=== PATIENT | female | born 1995 | race Two or more races ===

== ENCOUNTER 2017-01-10 09:29 | Emergency (ER) | payer SELFPAY ==
[2017-01-10] MEDS ORDERED: ONDANSETRON 4 MG TAB.RAPDIS SL ONE (09:40)
--- NOTE | 2017-01-10 09:41 | ER Document Report ---
ED Medical Screen (RME) - General Chief Complaint: Abdominal Pain Stated Complaint: ABDOMINAL PAIN Time Seen by Provider: 01/10/17 09:40 Mode of Arrival: Ambulatory Information source: Patient TRAVEL OUTSIDE OF THE [place] IN LAST 30 DAYS: No - HPI Patient complains to provider of: Abdominal pain with nausea and vomiting Notes: 01/10/17 09:40 Patient is a 21-year-old female presenting to the emergency room complaining of sharp stabbing abdominal pain with nausea and vomiting that started around 2 in the morning, she also reports chills and has a temperature of 99.6 in triage area, no sick contacts, denies being - Related Data Allergies/Adverse Reactions: No Known Allergies Allergy (Verified 01/10/17 09:32) Past Medical History Renal/ Medical History: Denies: Hx Peritoneal Dialysis - Immunizations Hx Diphtheria, Pertussis, Tetanus Vaccination: Yes Physical Exam - Vital signs Vitals: Temp Pulse Resp BP Pulse Ox 99.6 F 85 17 128/78 H 99 01/10/17 09:33 01/10/17 09:33 01/10/17 09:33 01/10/17 09:33 01/10/17 09:33 Course - Vital Signs Vital signs: Temp Pulse Resp BP Pulse Ox 99.6 F 85 17 128/78 H 99 01/10/17 09:33 01/10/17 09:33 01/10/17 09:33 01/10/17 09:33 01/10/17 09:33
[2017-01-10 10:27] LABS: ABSOLUTE EOSINOPHILS # (AUTO) 0.1 10^3/uL (0.0-0.6); ABSOLUTE LYMPHOCYTES (AUTO) 1.5 10^3/uL (0.5-4.7); ABSOLUTE MONOCYTES (AUTO) 0.3 10^3/uL (0.1-1.4); ABSOLUTE NEUT (AUTO) 8.9 10^3/uL (1.7-8.2); BASOPHILS % (AUTO) 0.4 % (0-2); EOSINOPHILS % (AUTO) 0.5 % (0-6); HEMATOCRIT 40.6 % (36.0-47.0); HEMOGLOBIN 14.3 g/dL (12.0-15.5); HGB HCT DIFFERENCE 2.3; LYMPHOCYTES % (AUTO) 13.8 % (13-45); MEAN CORPUSCULAR HEMOGLOBIN 31.9 pg (27.0-33.4); MEAN CORPUSCULAR HGB CONC 35.3 g/dL (32.0-36.0); MEAN CORPUSCULAR VOLUME 91 fl (80-97); MONOCYTES % (AUTO) 2.7 % (3-13); RED BLOOD COUNT 4.49 10^6/uL (3.72-5.28); RED CELL DISTRIBUTION WIDTH 12.5 % (11.5-14.0); SEGMENTED NEUTROPHILS % (AUTO) 82.6 % (42-78); WHITE BLOOD COUNT 10.8 10^3/uL (4.0-10.5)
[2017-01-10 10:37] LABS: APPEARANCE,URINE SLIGHTLY-CLOUDY; BILIRUBIN,URINE NEGATIVE (NEGATIVE); GLUCOSE, URINE >=500 mg/dL (NEGATIVE); KETONES,URINE NEGATIVE (NEGATIVE); LEUKOCYTE ESTERASE,URINE NEGATIVE (NEGATIVE); NITRITE,URINE NEGATIVE (NEGATIVE); PROTEIN,URINE NEGATIVE (NEGATIVE); URINE SPECIFIC GRAVITY 1.031; UROBILINOGEN,URINE NEGATIVE mg/dL (<2.0)
[2017-01-10 10:51] LABS: ALANINE AMINOTRANSFERASE 62 U/L (9-52); ALKALINE PHOSPHATASE 83 U/L (38-126); ANION GAP 15 (5-19); ASPARTATE AMINO TRANSFERASE 29 U/L (14-36); BILIRUBIN,DIRECT 0.3 mg/dL (0.0-0.4); BILIRUBIN,TOTAL 0.5 mg/dL (0.2-1.3); BLOOD UREA NITROGEN 12 mg/dL (7-20); CALCIUM 10.3 mg/dL (8.4-10.2); CARBON DIOXIDE 24 mmol/L (22-30); CHLORIDE 104 mmol/L (98-107); CREATININE RESULT 0.56 mg/dL (0.52-1.25); GLUCOSE 133 mg/dL (75-110); LIPASE 77.2 U/L (23-300); POTASSIUM 4.5 mmol/L (3.6-5.0); TOTAL PROTEIN 8.5 g/dL (6.3-8.2)
--- NOTE | 2017-01-10 11:30 | ER Document Report ---
ED GI/ <JOHN VALENTIN - Last Filed: 01/10/17 12:35> - General Mode of Arrival: Ambulatory Information source: Patient TRAVEL OUTSIDE OF THE [place] IN LAST 30 DAYS: No <MARTÍN MOSLEY - Last Filed: 01/10/17 12:48> - General Chief Complaint: Abdominal Pain Stated Complaint: ABDOMINAL PAIN Time Seen by Provider: 01/10/17 09:40 Notes: Patient is a 21 year old female that presents to the emergency department today with complaints of abdominal pain which began at 0200. Patient complains of epigastric and left lower quadrant abdominal pain. Patient states she has also had diarrhea and vomiting which began at 0200 as well. Patient states her last episode of vomiting/diarrhea was at 0800 this morning. Patient denies any vaginal discharge. (MARTÍN MOSLEY) - Related Data Allergies/Adverse Reactions: No Known Allergies Allergy (Verified 01/10/17 09:32) Past Medical History - General Information source: Patient - Social History Smoking Status: Never Smoker Cigarette use (# per day): No Chew tobacco use (# tins/day): No Frequency of alcohol use: Rare Drug Abuse: None Lives with: Family Family History: Reviewed & Not Pertinent - Medical History Medical History: Negative Surgical Hx: Negative - Immunizations Hx Diphtheria, Pertussis, Tetanus Vaccination: Yes <MARTÍN MOSLEY - Last Filed: 01/10/17 12:48> Review of Systems - Review of Systems Constitutional: Chills EENT: No symptoms reported Cardiovascular: No symptoms reported Respiratory: No symptoms reported Gastrointestinal: See HPI, Diarrhea, Vomiting Genitourinary: No symptoms reported Female Genitourinary: denies: Vaginal discharge Musculoskeletal: No symptoms reported Skin: No symptoms reported Hematologic/Lymphatic: No symptoms reported Neurological/Psychological: No symptoms reported -: Yes All other systems reviewed and negative <MARTÍN MOSLEY - Last Filed: 01/10/17 12:48> Physical Exam <JOHN VALENTIN - Last Filed: 01/10/17 12:35> <MARTÍN MOSLEY - Last Filed: 01/10/17 12:48> - Vital signs Vitals: Temp Pulse Resp BP Pulse Ox 99.6 F 85 17 128/78 H 99 01/10/17 09:33 01/10/17 09:33 01/10/17 09:33 01/10/17 09:33 01/10/17 09:33 - Notes Notes: Physical Exam: General: Alert, appears well. HEENT: Normocephalic. Atraumatic. PERRL. Extraocular movements intact. Oropharynx clear. Neck: Supple. Non-tender. Respiratory: No respiratory distress. Clear and equal breath sounds bilaterally. Cardiovascular: Regular rate and rhythm. Abdominal: LLQ tenderness with palpation. No distension. Normal Bowel Sounds. Back: Non-tender. No deformity or step off. Extremities: Moves all four extremities. Upper extremities: Normal inspection. Normal ROM. Lower extremities: Normal inspection. No edema. Normal ROM. Neurological: Normal cognition. AAOx4. Normal speech. Psychological: Normal affect. Normal Mood. Skin: Warm. Dry. Normal color. (MARTÍN MOSLEY) Course - Laboratory Result Diagrams: 01/10/17 09:58 01/10/17 09:58 <JOHN VALENTIN - Last Filed: 01/10/17 12:35> - Laboratory Result Diagrams: 01/10/17 09:58 01/10/17 09:58 <MARTÍN MOSLEY - Last Filed: 01/10/17 12:48> - Re-evaluation Re-evalutation: 01/10/17 12:35 The patient reports she does feel much better and is tolerating p.o. fluids after the Zofran given on the triage. Her lab work is unremarkable other than a somewhat concentrated urine. She will be discharged with a prescription for Zofran as that did seem to work quite well for her. (JOHN VALENTIN) - Vital Signs Vital signs: Temp Pulse Resp BP Pulse Ox 99.6 F 85 17 128/78 H 99 01/10/17 09:33 01/10/17 09:33 01/10/17 09:33 01/10/17 09:33 01/10/17 09:33 - Laboratory Laboratory results interpreted by va: 01/10/17 01/10/17 01/10/17 09:58 09:58 09:58 WBC 10.8 H Seg Neutrophils % 82.6 H Monocytes % 2.7 L Absolute Neutrophils 8.9 H Glucose 133 H Calcium 10.3 H ALT 62 H Total Protein 8.5 H Urine Glucose (UA) >=500 H Urine Blood MODERATE H Discharge <JOHN VALENTIN - Last Filed: 01/10/17 12:35> <MARTÍN MOSLEY - Last Filed: 01/10/17 12:48> - Discharge Clinical Impression: Nausea vomiting and diarrhea, Abdominal cramps Condition: Stable Disposition: HOME, SELF-CARE Additional Instructions: Gastroenteritis: You most likely have gastroenteritis. This is an irritation of the stomach and intestinal tract. It's usually caused by a virus, but can also be caused by bacteria, toxins that cause food poisoning, or excessive alcohol intake. Symptoms may include fever, painful abdominal cramps, nausea, vomiting , and diarrhea. Start with small amounts (two to six ounces) of clear liquids (soft drinks , herb teas, broth, etc). Try to take fluids frequently even if you are vomiting, to prevent dehydration. When liquids are being consumed successfully , advance to small amounts of bland food (mashed potato, toast) for 6 - 12 hours. Gastroenteritis rarely requires medication. It goes away by itself. Use good handwashing so you don't spread germs. Wash underwear in very hot water. If symptoms are severe, talk to the doctor. Call your physician if blood appears in your vomitus or stool, if vomiting lasts longer than 24 hours, if the abdominal pain worsens or becomes localized to one area, or if you develop high fever. Drink cool clear liquids today. Take the Zofran for nausea as needed. Get plenty of rest today. Try Pepto-Bismol if the diarrhea continues to be a problem. Follow-up with local medical doctor if not improving. RETURN TO THE EMERGENCY ROOM IF ANY NEW OR WORSENING SYMPTOMS. Prescriptions: Ondansetron HCl [Zofran 4 mg Tablet] 1 - 2 tab PO Q4H PRN #12 tablet PRN Reason: Scribe Attestation: 01/10/17 12:38 I personally performed the services described in the documentation, reviewed and edited the documentation which was dictated to the scribe in my presence, and it accurately records my words and actions. (JOHN VALENTIN) Scribe Documentation - Scribe Written by Anne:: Anne Keene, 01/10/2017 1248 acting as scribe for :: Stevenson <MARTÍN MOSLEY - Last Filed: 01/10/17 12:48>
[2017-01-10 12:49] VITALS: BP 114/57
== END 2017-01-10 12:49 | disposition home or self-care (01) ==
LOC: ER 09:29
DX: R10.13 Epigastric pain (principal); R10.32 Left lower quadrant pain; R11.2 Nausea with vomiting, unspecified; R19.7 Diarrhea, unspecified; R68.83 Chills (without fever)
CPT/HCPCS: 99284; 36415; 87086; 83690; 84703; 85025; 80053; 81001; S0119

== ENCOUNTER 2017-04-27 14:37 | Observation (INO) | payer SELFPAY ==
[~2017-04-27 14:37] MED LIST: DEXAMETHASONE SOD PHOSPHATE INJ 4 MG/1 ML VIAL ONE; GLYCOPYRROLATE INJ 0.4 MG/2 ML VIAL ONE; LIDOCAINE 2% INJ-PF (20 MG/ML) 2 ML AMPUL ONE; NEOSTIGMINE METHYLSULFATE 10 MG/10 ML VIAL ONE; ONDANSETRON HCL INJ/PF 4 MG/2 ML SDV ONE; ROCURONIUM BROMIDE INJ 50 MG/5 ML VIAL IV ONE; SUCCINYLCHOLINE CHLORIDE INJ 200 MG/10 ML VIAL ONE
[2017-04-27] MEDS ORDERED: KETOROLAC TROMETHAMINE INJ/PF 30 MG/1 ML SDV IV ONE (15:27)
[2017-04-27] MEDS ORDERED: NORMAL SALINE 1000 ML 1,000 ML IV ONE ×2 (15:27→18:54)
[2017-04-27] MEDS ORDERED: ONDANSETRON HCL INJ/PF 4 MG/2 ML SDV IV ONE (15:27)
--- NOTE | 2017-04-27 15:32 | ER Document Report ---
ED Medical Screen (RME) - General Chief Complaint: Abdominal Pain Stated Complaint: ABDOMINAL PAIN Time Seen by Provider: 04/27/17 15:26 Mode of Arrival: Wheelchair Information source: Patient TRAVEL OUTSIDE OF THE [place] IN LAST 30 DAYS: No - HPI Patient complains to provider of: abd pain Onset: This morning - pt. with onset of generalized abd pain with N/V/D starting earlier this am - Related Data Allergies/Adverse Reactions: No Known Allergies Allergy (Verified 04/27/17 14:39) Past Medical History - Social History Chew tobacco use (# tins/day): No Frequency of alcohol use: None Drug Abuse: None Renal/ Medical History: Denies: Hx Peritoneal Dialysis - Immunizations Hx Diphtheria, Pertussis, Tetanus Vaccination: Yes Physical Exam - Vital signs Vitals: Temp Pulse Resp BP Pulse Ox 99.0 F 69 18 118/82 99 04/27/17 14:47 04/27/17 14:47 04/27/17 14:47 04/27/17 14:47 04/27/17 14:47 Course - Vital Signs Vital signs: Temp Pulse Resp BP Pulse Ox 99.0 F 69 18 118/82 99 04/27/17 14:47 04/27/17 14:47 04/27/17 15:10 04/27/17 14:47 04/27/17 14:47
[2017-04-27 16:49] LABS: APPEARANCE,URINE SLIGHTLY-CLOUDY; BILIRUBIN,URINE NEGATIVE (NEGATIVE); COLOR,URINE YELLOW; GLUCOSE, URINE 50 mg/dL (NEGATIVE); KETONES,URINE TRACE mg/dL (NEGATIVE); LEUKOCYTE ESTERASE,URINE NEGATIVE (NEGATIVE); NITRITE,URINE NEGATIVE (NEGATIVE); PROTEIN,URINE NEGATIVE (NEGATIVE); URINE SPECIFIC GRAVITY 1.025; UROBILINOGEN,URINE NEGATIVE mg/dL (<2.0)
[2017-04-27 16:57] LABS: ABSOLUTE BASOPHILS # (AUTO) 0.1 10^3/uL (0.0-0.2); ABSOLUTE LYMPHOCYTES (AUTO) 1.4 10^3/uL (0.5-4.7); ABSOLUTE MONOCYTES (AUTO) 0.4 10^3/uL (0.1-1.4); ABSOLUTE NEUT (AUTO) 12.9 10^3/uL (1.7-8.2); BASOPHILS % (AUTO) 0.4 % (0-2); EOSINOPHILS % (AUTO) 0.3 % (0-6); HEMATOCRIT 39.7 % (36.0-47.0); HEMOGLOBIN 13.8 g/dL (12.0-15.5); LYMPHOCYTES % (AUTO) 9.2 % (13-45); MEAN CORPUSCULAR HEMOGLOBIN 31.2 pg (27.0-33.4); MEAN CORPUSCULAR HGB CONC 34.7 g/dL (32.0-36.0); MEAN CORPUSCULAR VOLUME 90 fl (80-97); PLATELET COUNT 344 10^3/uL (150-450); RED BLOOD COUNT 4.42 10^6/uL (3.72-5.28); SEGMENTED NEUTROPHILS % (AUTO) 87.1 % (42-78); TOTAL CELLS COUNTED % (AUTO) 100 %; WHITE BLOOD COUNT 14.8 10^3/uL (4.0-10.5)
[2017-04-27 17:18] LABS: ALANINE AMINOTRANSFERASE 60 U/L (9-52); ALKALINE PHOSPHATASE 87 U/L (38-126); ANION GAP 13 (5-19); ASPARTATE AMINO TRANSFERASE 30 U/L (14-36); BILIRUBIN,DIRECT 0.1 mg/dL (0.0-0.4); BILIRUBIN,TOTAL 0.6 mg/dL (0.2-1.3); BLOOD UREA NITROGEN 11 mg/dL (7-20); CALCIUM 10.3 mg/dL (8.4-10.2); CARBON DIOXIDE 21 mmol/L (22-30); CHLORIDE 105 mmol/L (98-107); GLUCOSE 100 mg/dL (75-110); LIPASE 42.1 U/L (23-300); POTASSIUM 4.1 mmol/L (3.6-5.0); SODIUM 138.8 mmol/L (137-145); TOTAL PROTEIN 8.3 g/dL (6.3-8.2)
--- NOTE | 2017-04-27 18:08 | RADIOLOGY REPORT (SQ) ---
EXAM DESCRIPTION: CT ABD/PELVIS WITH IV ONLY COMPLETED DATE/TIME: 04/27/2017 5:53 pm REASON FOR STUDY: abd pain COMPARISON: None. TECHNIQUE: CT scan of the abdomen and pelvis performed using helical scanning technique with dynamic intravenous contrast injection. No oral contrast. Images reviewed with lung, soft tissue, and bone windows. Reconstructed coronal and sagittal MPR images reviewed. Delayed images for evaluation of the urinary system also acquired. All images stored on PACS. All CT scanners at this facility use dose modulation, iterative reconstruction, and/or weight based d osing when appropriate to reduce radiation dose to as low as reasonably achievable (ALARA). [facility]: Dose Right [facility]: CareDose [facility]: Dose Right [facility]: Teradose 4D [facility]: [employer] CONTRAST TYPE AND DOSE: contrast/concentration: Isovue 370.00 mg/ml; Total Contrast Delivered: 77.0 ml; Total Saline Delivered: 62.0 ml RENAL FUNCTION: BUN 11 creatinine 0.53. RADIATION DOSE: CT Rad equipment meets quality standard of care and radiation dose reduction techniq ues were employed. CTDIvol: 6.8 - 9.6 mGy. DLP: 924 mGy-cm.. LIMITATIONS: None. FINDINGS: LOWER CHEST: No significant findings. No nodules or infiltrates. LIVER: Normal size. No masses. No dilated ducts. SPLEEN: Normal size. No focal lesions. PANCREAS: No masses. No significant calcifications. No adjacent inflammation or peripancreatic fluid collections. Pancreatic duct not dilated. GALLBLADDER: No identified stones by CT criteria. No inflammatory changes to suggest cholecystitis. ADRENAL GLANDS: No significant masses or asymmetry. RIGHT KIDNEY AND URETER: No solid masses. No significant calcifications. No hydronephrosis or hyd roureter. LEFT KIDNEY AND URETER: No solid masses. No significant calcifications. No hydronephrosis or hydr oureter. AORTA AND VESSELS: No aneurysm. No dissection. Renal arteries, SMA, celiac without stenosis. RETROPERITONEUM: No retroperitoneal adenopathy, hemorrhage or masses. BOWEL AND PERITONEAL CAVITY: No masses or inflammatory changes. No free fluid or peritoneal masses. APPENDIX: Mildly distended, measuring 9 mm. No significant thickening of the wall. Several appendic oliths are present. The appendix is best imaged on axial series 5 images 60 - 71. PELVIS: No mass. No free fluid. Normal bladder. ABDOMINAL WALL: No masses. No hernias. BONES: No significant or acute findings. OTHER: No other significant finding. IMPRESSION: 1. MILDLY DISTENDED APPENDIX WITH MULTIPLE APPENDICOLITHS. NO SIGNIFICANT THICKENING OF THE WALL OR PERIAPPENDICEAL INFLAMMATORY CHANGES. CANNOT EXCLUDE EARLY ACUTE APPENDICITIS, HOWEVER. 2. NO OTHER SIGNIFICANT OR ACUTE FINDING IN THE ABDOMEN OR PELVIS ON CT SCAN WITH IV CONTRAST. TECHNICAL DOCUMENTATION: JOB ID: [id number] Quality ID # [id number]: Final reports with documentation of one or more dose reduction techniques (e.g., Au tomated exposure control, adjustment of the mA and/or kV according to patient size, use of iterative reconstruction technique) 2010 [employer]- All Rights Reserved
[2017-04-27] MEDS ORDERED: PIPERACILLIN/TAZOBACTAM 3.375 GM VIAL IV ONE (18:57)
[2017-04-27] MEDS ORDERED: MORPHINE SULFATE 10 MG/ML INJ IV PRN ×3 (18:57→21:23)
--- NOTE | 2017-04-27 18:58 | ER Document Report ---
ED General - General Chief Complaint: Abdominal Pain Stated Complaint: ABDOMINAL PAIN Time Seen by Provider: 04/27/17 15:26 Mode of Arrival: Wheelchair Notes: Patient is a 21 year old female without past medical history, no prior surgical history who presents with 24 hours of progressively worsening right lower quadrant abdominal pain. Patient states that the pain initially was to her central abdomen and then has migrated towards her right lower quadrant in the past 4-5 hours. She does describe it as a dull, constant throbbing pain. Touching the area worsens the pain, nothing improves the pain. She denies any history of similar symptoms in the past. She has not seen her primary doctor regarding today's concerns. She notes associated nausea and vomiting. No associated fever. Denies any vaginal bleeding, vaginal discharge or dysuria. TRAVEL OUTSIDE OF THE [place] IN LAST 30 DAYS: No - Related Data Allergies/Adverse Reactions: No Known Allergies Allergy (Verified 04/27/17 14:39) Past Medical History - General Information source: Patient - Social History Smoking Status: Never Smoker Chew tobacco use (# tins/day): No Frequency of alcohol use: None Drug Abuse: None Lives with: Family Family History: Reviewed & Not Pertinent Patient has suicidal ideation: No Patient has homicidal ideation: No Renal/ Medical History: Denies: Hx Peritoneal Dialysis - Immunizations Hx Diphtheria, Pertussis, Tetanus Vaccination: Yes Review of Systems - Review of Systems Notes: Constitutional: Negative for fever. HENT: Negative for sore throat. Eyes: Negative for visual changes. Cardiovascular: Negative for chest pain. Respiratory: Negative for shortness of breath. Gastrointestinal: Positive for abdominal pain and vomiting Genitourinary: Negative for dysuria. Musculoskeletal: Negative for back pain. Skin: Negative for rash. Neurological: Negative for headaches, weakness or numbness. 10 point ROS negative except as marked above and in HPI. Physical Exam - Vital signs Vitals: Temp Pulse Resp BP Pulse Ox 99.0 F 69 18 118/82 99 04/27/17 14:47 04/27/17 14:47 04/27/17 14:47 04/27/17 14:47 04/27/17 14:47 Interpretation: Normal Notes: PHYSICAL EXAMINATION: GENERAL: Appears moderately uncomfortable but in no acute distress HEAD: Atraumatic, normocephalic. EYES: Pupils equal round and reactive to light, extraocular movements intact, sclera anicteric, conjunctiva are normal. ENT: nares patent, oropharynx clear without exudates. Moist mucous membranes. NECK: Normal range of motion, supple without lymphadenopathy LUNGS: Breath sounds clear to auscultation bilaterally and equal. No wheezes rales or rhonchi. HEART: Regular rate and rhythm without murmurs ABDOMEN: Soft, focal tenderness to the right lower quadrant with associated involuntary guarding and rebound. No otherwise localized tenderness. EXTREMITIES: Normal range of motion, no pitting or edema. No cyanosis. NEUROLOGICAL: No focal neurological deficits. Moves all extremities spontaneously and on command. PSYCH: Normal mood, normal affect. SKIN: Warm, Dry, normal turgor, no rashes or lesions noted. Course - Re-evaluation Re-evalutation: 04/28/171929 Presentation is most consistent with an acute appendicitis based on exam and history. CT does confirm findings consistent with an acute appendicitis. Labs also demonstrate leukocytosis. I have discussed this case with Dr. Hernandez the surgeon cotton agent who has accepted the patient for hospitalization and operative management. Patient has been given IV Zosyn, IV fluids and made n.p.o. - Vital Signs Vital signs: Temp Pulse Resp BP Pulse Ox 98.3 F 97 20 109/55 L 98 04/28/17 03:41 04/28/17 03:41 04/28/17 03:41 04/28/17 03:41 04/28/17 02:50 - Laboratory Result Diagrams: 04/27/17 16:40 04/27/17 16:40 Laboratory results interpreted by me: 04/27/17 04/27/17 04/27/17 16:25 16:40 16:40 WBC 14.8 H Seg Neutrophils % 87.1 H Lymphocytes % 9.2 L Absolute Neutrophils 12.9 H Carbon Dioxide 21 L Calcium 10.3 H ALT 60 H Total Protein 8.3 H Urine Glucose (UA) 50 H Urine Ketones TRACE H Urine Blood MODERATE H - Diagnostic Test Radiology reviewed: Image reviewed, Reports reviewed Discharge - Discharge Clinical Impression: Acute appendicitis Qualifiers: Acute appendicitis type: with localized peritonitis Qualified Code(s): K35.3 - Acute appendicitis with localized peritonitis Condition: Fair Disposition: ADMITTED INPATIENT Admitting Provider: Surgicalist Lizandro Hernandez
--- NOTE | 2017-04-27 19:47 | PDOC H&P ---
History of Present Illness Admission Date/PCP: 04/27/17 19:08 Today Patient complains of: Abdominal pain History of Present Illness: LIZ WILSON is a 21 year old female presents to the emergency department complaining of a one-day history of abdominal pain periumbilical generalized lower pelvic area then radiating to the right lower quadrant associated with nausea and vomiting multiple episodes. Last bowel movement yesterday, normal. Patient denies history of use episodes , history of trauma or any gastrointestinal problems. Patient was seen in the emergency department where she was found to have right lower quadrant tenderness leukocytosis and CT scan findings consistent with acute appendicitis. Surgery was consulted and she was advised admission. She is of descent but speaks fluent Estonian. Past Medical History Cardiac Medical History: Reports: None Past Surgical History Past Surgical History: Reports: None Social History Smoking Status: Never Smoker Hx Recreational Drug Use: No Hx Prescription Drug Abuse: No Family History Family History: Reviewed & Not Pertinent Parental Family History Reviewed: Yes Children Family History Reviewed: Yes Sibling(s) Family History Reviewed.: Yes Medication/Allergy Home Medications: Pnv with Ca,No.72/Iron/FA [ Plus Multivitamin Tab] 1 tab PO DAILY Ibuprofen [Motrin 800 mg Tablet] 800 mg PO Q8 #60 tablet 01/06/16 Ondansetron HCl [Zofran 4 mg Tablet] 1 - 2 tab PO Q4H PRN #12 tablet 01/10/17 Allergies/Adverse Reactions: No Known Allergies Allergy (Verified 04/27/17 14:39) Review of Systems Constitutional: PRESENT: as per HPI Eyes: ABSENT: visual disturbances Ears: ABSENT: hearing changes Cardiovascular: ABSENT: chest pain, dyspnea on exertion, edema, orthropnea, palpitations Respiratory: ABSENT: cough, hemoptysis Gastrointestinal: PRESENT: as per HPI Genitourinary: ABSENT: dysuria, hematuria Musculoskeletal: ABSENT: joint swelling Integumentary: ABSENT: rash, wounds Physical Exam Vital Signs: Temp Pulse Resp BP Pulse Ox 99.0 F 69 18 118/82 99 04/27/17 14:47 04/27/17 14:47 04/27/17 15:10 04/27/17 14:47 04/27/17 14:47 General appearance: PRESENT: mild distress Head exam: PRESENT: normocephalic Eye exam: PRESENT: EOMI Ear exam: PRESENT: normal external ear exam Neck exam: PRESENT: full ROM Respiratory exam: PRESENT: clear to auscultation nita Cardiovascular exam: PRESENT: RRR Pulses: PRESENT: normal carotid pulses, normal radial pulses, normal femoral pulses Vascular exam: PRESENT: normal capillary refill GI/Abdominal exam: PRESENT: other - Nondistended; tender right lower quadrant with guarding. Rectal exam: PRESENT: deferred Extremities exam: PRESENT: full ROM Musculoskeletal exam: PRESENT: full ROM Neurological exam: PRESENT: alert, altered, awake, oriented to person, oriented to place Psychiatric exam: PRESENT: appropriate affect Results Impressions: Abdomen/Pelvis CT 04/27/17 15:27 IMPRESSION: 1. MILDLY DISTENDED APPENDIX WITH MULTIPLE APPENDICOLITHS. NO SIGNIFICANT THICKENING OF THE WALL OR PERIAPPENDICEAL INFLAMMATORY CHANGES. CANNOT EXCLUDE EARLY ACUTE APPENDICITIS, HOWEVER. 2. NO OTHER SIGNIFICANT OR ACUTE FINDING IN THE ABDOMEN OR PELVIS ON CT SCAN WITH IV CONTRAST. Assessment & Plan - Diagnosis (1) Acute appendicitis Qualifiers: Acute appendicitis type: with localized peritonitis Qualified Code(s): K35.3 - Acute appendicitis with localized peritonitis Is this a current diagnosis for this admission?: Yes Plan: Acute appendicitis with no evidence of rupture based on clinical history physical examination and radiographic findings CT scan of the abdomen and pelvis which shows dilated appendix, with multiple appendicoliths. Commendations: 1. Proceed with admission, IV fluids, intravenous antibiotics, n.p.o. 2. We will set patient up for laparoscopic, possible open appendectomy, general anesthesia, this evening. I explained to her the risks benefits alternatives of planned procedure. She expressed her understanding. And agrees to proceed. - Time Time Spent: 30 to 50 Minutes Critical Time spent with patient: 15-24 minutes Medications reviewed and adjusted accordingly: Yes Anticipated discharge: Home - Inpatient Certification Based on my medical assessment, after consideration of the patient's comorbidities, presenting symptoms, or acuity I expect that the services needed warrant INPATIENT care.: Yes I certify that my determination is in accordance with my understanding of Medicare's requirements for reasonable and necessary INPATIENT services [42 CFR 412.3e].: Yes Medical Necessity: Need For IV Fluids, Need for Pain Control, Need for IV Antibiotics, Need for Surgery
[2017-04-27] MEDS ORDERED: BUPIVACAINE HCL 0.25 % INJ/PF (2.5 MG/1 ML) 30 ML VIAL ONE (19:49)
[2017-04-27] MEDS ORDERED: FENTANYL CITRATE INJ/PF 100 MCG/2 ML AMPUL ONE ×2 (20:03)
[2017-04-27] MEDS ORDERED: ACETAMINOPHEN 100 ML IV ONE (20:04)
[2017-04-27] MEDS ORDERED: MIDAZOLAM 2 MG/2 ML INJ ONE (20:04)
[2017-04-27] MEDS ORDERED: PROPOFOL INJ 200 MG/20 ML VIAL IV ONE (20:04)
[2017-04-27] MEDS ORDERED: FENTANYL CITRATE INJ/PF 100 MCG/2 ML AMPUL IV PRN ×3 (21:03)
[2017-04-27] MEDS ORDERED: DIPHENHYDRAMINE HCL 50 MG/ML VIAL IV PRN (21:03)
[2017-04-27] MEDS ORDERED: PROMETHAZINE HCL INJ 25 MG/1 ML VIAL IV PRN (21:03)
[2017-04-27] MEDS ORDERED: KETOROLAC TROMETHAMINE INJ/PF 30 MG/1 ML SDV IV PRN (21:23)
[2017-04-27] MEDS ORDERED: ONDANSETRON HCL INJ/PF 4 MG/2 ML SDV IV PRN ×2 (21:23)
--- NOTE | 2017-04-27 21:30 | Operative Report ---
Operative Report DATE OF SURGERY: 04/27/17 PREOPERATIVE DIAGNOSIS: Acute appendicitis with appendicoliths POSTOPERATIVE DIAGNOSIS: Same OPERATION: Laparoscopic appendectomy SURGEON: JAMES WILKINSON ANESTHESIA: GA TISSUE REMOVED OR ALTERED: Appendix COMPLICATIONS: None ESTIMATED BLOOD LOSS: Minimal INTRAOPERATIVE FINDINGS: See below PROCEDURE: Patient was taken to the preop holding area the main operating room where general anesthesia was induced. Arms were abducted abdomen prepped and draped sterile fashion with Betadine. Local plan surgical timeout were conducted. Instrumentation was set up for laparoscopic appendectomy. Skin markings were made for 3 port appendectomy. Skin was anesthetized with quarter percent Marcaine. A supraumbilical vertical incision was made with a knife Veress needle inserted the peritoneal cavity pneumoperitoneum was established. Veress needle was removed, 5 mm ports established and 5 mm flexible viewing scope was established. Under direct visualization a 12 mm left lower quadrant port and a 5 mm supraumbilical port were established. No evidence of visceral or vascular injury countered. There was minimal bleeding from the port site at the abdominal wall level stop spontaneously. The appendix was grossly inflamed edematous consistent with acute appendicitis. There was no evidence of phlegmon or perforation. There was no fluid in the pelvis. The appendix was grasped at mid body and retracted medially and cephalad. The retroperitoneal attachments were freed up to the level of the cecum allowing the mesial appendix to be exposed. Terminal ileum, cecum, parents were all well visualized. The mesial appendix was then came down with LigaSure device. Now the appendix was suspended solely at its base and photos were taken. The appendix was amputated at its base with a single firing of the blue load 45 mm Endo [place] stapler. The appendix was placed in Endobag and brought out of the patient to the left lower quadrant port site incision. We checked for bleeding there was none. We inspected the staple line and it was intact and we are very satisfied with this appearance. His were taken. At this point the operation was deemed complete. Sponge and counts were correct. All ports removed under direct visualization, pneumoperitoneum evacuated wounds closed with 3-0 Vicryl ,0 Vicryl at the fascial level for the left lower quadrant port site, and benzoin Steri-Strips. Patient tolerated procedure well, extubated, taken recovery in stable condition.
[2017-04-27] MEDS ORDERED: PIPERACILLIN/TAZOBACTAM 3.375 GM VIAL IV PRN (22:22)
[2017-04-28] MEDS ORDERED: PIPERACILLIN/TAZOBACTAM 3.375 GM VIAL IV ONE (01:46)
[2017-04-28] MEDS ORDERED: PIPERACILLIN SODIUM/TAZOBACTAM 3.375 GM in NORMAL SALINE 100 ML IV SCH (02:00)
[2017-04-28 08:31] VITALS: BP 105/57
--- NOTE | 2017-04-29 15:03 | PDOC DISCHARGE SUMMARY ---
Discharge Summary (SDC) - Discharge Final Diagnosis: Acute appendicitis Date of Surgery: 04/27/17 Condition: Good Forms: Discharge POC-Adult Treatment or Instructions: The patient was admitted to the hospital. She underwent laparoscopic appendectomy by Dr. Hernandez. She has done well post procedure. The morning following surgery, she is awake alert and oriented. She is tolerating a liquid diet. She is having no nausea or vomiting. Her abdomen is soft and has expected postoperative tenderness. There is no erythema at the incision site Prescriptions: Hydrocodone/Acetaminophen [[place] 5-325 mg Tablet] 1 tab PO Q6H PRN #15 tablet PRN Reason: Severe Pain Referrals: JAMES HERNANDEZ MD [ACTIVE STAFF] - 05/07/17 10:30 am (follow up 05/07/17 at 1030) Discharge Activity: Other - May shower in 24 hours. No lifting greater than 20 pounds for 4 weeks. Report the Following to Your Physician Immediately: Nausea, Vomiting, Fever over 101 Degrees Provider Note Provider Note: Patient was admitted to the hospital with a diagnosis of acute appendicitis. She was taken to the operating room by Dr. Hernandez. She underwent laparoscopic appendectomy. Postprocedure she has done well. She will be discharged with planned follow-up in the office in 1-2 weeks. Discharge instructions were given to the patient. At the time of discharge, the patient is awake alert and oriented. Her pain was well controlled. She was having no nausea or vomiting. She was tolerating a diet. The incisions were healing without evidence of infection.
== END 2017-04-28 11:35 | disposition home or self-care (01) ==
LOC: ER 14:37 → EH 19:08 → INTOOBSV 19:08 → 2S 22:05
PROVIDERS: ATTEND Surgery
PROC: 0DTJ4ZZ Resection of Appendix, Percutaneous Endoscopic Approach (ICD-10-PCS; principal; 2017-04-27 19:25)
DX: K35.3 Acute appendicitis with localized peritonitis (principal)
CPT/HCPCS: 99285; 96361; 96374; 96375; 36415; 83690; 85025; 81025; 80053; 81001; 88304 ×2; 74177; 44970; G0378 ×3; J2250; J3490 ×2; J1100; J3010; J1885 ×2; J2270; J0330; J2405; J7030; J2704; J2543 ×2; J0131; 840

== ENCOUNTER 2019-02-05 01:59 | Emergency (ER) | payer SELFPAY ==
[2019-02-05 02:06] VITALS: BP 139/98
[2019-02-05] MEDS ORDERED: CIPROFLOXACIN HCL/DEXAMETH OTIC DROP 7.5 ML AD ONE (02:21)
[2019-02-05] MEDS ORDERED: KETOROLAC TROMETHAMINE 60 MG/2 ML SDV IM ONE (02:22)
--- NOTE | 2019-02-05 02:22 | ER Document Report ---
HPI - HPI Time Seen by Provider: 02/05/19 02:12 Pain Level: 4 Context: Patient is a 23-year-old female that comes emergency department for chief complaint of right ear pain. She states her ear started hurting yesterday, she states it is throbbing, she denies discharge, loss of hearing, injury, she states she did have some sore throat, fever, congestion a few days ago but this resolved. She denies any symptoms other than right ear pain. She denies or any daily medications. - REPRODUCTIVE Reproductive: DENIES: : Past Medical History - General Information source: Patient - Social History Smoking Status: Never Smoker Chew tobacco use (# tins/day): No Frequency of alcohol use: None Drug Abuse: None Lives with: Family Family History: Reviewed & Not Pertinent Patient has suicidal ideation: No Patient has homicidal ideation: No - Medical History Medical History: Negative Renal/ Medical History: Denies: Hx Peritoneal Dialysis Surgical Hx: Negative - Immunizations Immunizations up to date: Yes Hx Diphtheria, Pertussis, Tetanus Vaccination: Yes Vertical Provider Document - CONSTITUTIONAL General Appearance: WD/WN, No Apparent Distress - INFECTION CONTROL TRAVEL OUTSIDE OF THE [place] IN LAST 30 DAYS: No - HEENT HEENT: Atraumatic, Normocephalic. negative: Normal ENT Exam - Oral pharyngeal exam unremarkable, nasal and eye exams unremarkable. Patient with tragal tenderness and swelling of the ear canal of the right ear, erythema of the ear canal, normal tympanic membrane. Left ear is unremarkable. Both mastoids are normal. - NECK Neck: Normal Inspection - RESPIRATORY Respiratory: Breath Sounds Normal, No Respiratory Distress - CARDIOVASCULAR Cardiovascular: Regular Rate, Regular Rhythm - GI/ABDOMEN Gastrointestinal: Abdomen Soft, Abdomen Non-Tender - BACK Back: Normal Inspection - MUSCULOSKELETAL/EXTREMETIES Musculoskeletal/Extremeties: MAEW, FROM, Non-Tender - NEURO Level of Consciousness: Awake, Alert, Appropriate Motor/Sensory: No Motor Deficit, No Sensory Deficit - DERM Integumentary: Warm, Dry, No Rash Course - Re-evaluation Re-evalutation: Evaluation consistent with otitis externa, no concerning findings otherwise. Discussed recommendations, treatment, follow-up, return precautions. Provided with Ciprodex to go home with from here. Patient states understanding and agreement. - Vital Signs Vital signs: Temp Pulse Resp BP Pulse Ox 99.1 F 85 22 H 139/98 H 100 11/09/19 02:04 02/05/19 02:04 02/05/19 02:04 02/05/19 02:04 02/05/19 02:04 Discharge - Discharge Clinical Impression: Right otitis externa Qualifiers: Otitis externa type: unspecified type Chronicity: acute Qualified Code(s): H60.501 - Unspecified acute noninfective otitis externa, right ear Condition: Stable Disposition: HOME, SELF-CARE Additional Instructions: Your evaluation is consistent with a infection of the ear canal, otitis externa. Use the drops as prescribed, 4 drops, twice a day, for 7 days. Take 800 mg of ibuprofen every 8 hours for pain, you can take Tylenol with this as well. Symptoms should resolve. Follow-up with primary care. Return if you worsen including severe swelling of the ear, fever, vomiting, severe worsening pain, or any other concerning symptoms.
== END 2019-02-05 02:57 | disposition home or self-care (01) ==
LOC: ER 01:59
DX: H60.501 Unspecified acute noninfective otitis externa, right ear (principal); H92.01 Otalgia, right ear
CPT/HCPCS: J1885; J3490; 96372; 99282

== ENCOUNTER → 2020-02-16 | Outpatient (CLI) | payer SELFPAY ==
--- NOTE | 2020-02-16 15:30 | RADIOLOGY REPORT (SQ) ---
EXAM DESCRIPTION: U/S [id number] TRNABD 1GES W/ODOP IMAGES COMPLETED DATE/TIME: 02/16/2020 2:32 pm REASON FOR STUDY: ENCOUNTER FOR SUPERVISION OF OTHER NORMAL , FIRST TRIMESTER Z34.81 ENCOU NTER FOR SUPRVSN OF NORMAL , FIRST TRIM COMPARISON: None. TECHNIQUE: Transvaginal static and realtime grayscale images acquired of the pelvis. Additional alden cted spectral and color Doppler images recorded. All images stored on PACs. bHCG: Not available. CLINICAL DATES: 8 weeks 5 days. LIMITATIONS: None. FINDINGS: FETUS: Single Living intrauterine . ULTRASOUND EGA: 8 weeks 4 days. ULTRASOUND ARNALDO: 09/23/2020 EFW: Not applicable less than 20 weeks. CRL: 2.04 cm FHR: 165 beats per minute. SURVEY: No visualized anomalies. AMNIOTIC FLUID: Adequate amount. PLACENTA: Not yet developed due to early gestation. SUBCHORIONIC BLEED: No. SIZE OF BLEED: Not applicable. UTERUS: No masses. No anomalies. CERVICAL LENGTH: 2.8 Closed. RIGHT ADNEXA: Normal ovary with normal vascular flow. No adnexal free fluid. No adnexal masses. LEFT ADNEXA: Normal ovary with normal vascular flow. No adnexal free fluid. No adnexal masses. FREE FLUID: None. OTHER: No other significant finding. IMPRESSION: LIVING INTRAUTERINE . EGA 8 weeks 4 days Trimester of : First trimester - 0 to 13 weeks. TECHNICAL DOCUMENTATION: JOB ID: [id number] 2010 [employer]- All Rights Reserved rev Reading location - IP/workstation name: [email or web address]
== END ==
LOC: RAD 14:09
PROVIDERS: ATTEND Nurse Practitioner Family
DX: Z34.81 Encounter for supervision of other normal pregnancy, first trimester (principal); Z3A.08 8 weeks gestation of pregnancy
CPT/HCPCS: 76801